=== PATIENT | female | born 1990 | race Caucasian/White ===

== ENCOUNTER 2017-04-25 02:04 | Emergency (ER) | payer BC, OTHER ==
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
[2017-04-25] MEDS ORDERED: NORMAL SALINE 1,000 ML IV PRN (02:19)
[2017-04-25 02:27] LABS: Hematocrit 44.2 % (37.0-47.0); Hemoglobin 15.5 gm/dL (12.5-16.0); Mean Cell Volume 88.8 fl (78-100); Mean Corpuscular Hemoglobin 31.1 pg (27-31); Mean Corpuscular Hgb Conc 35.1 g/dl (32-36); Mean Platelet Volume 9.3 fl (6.0-9.5); Neutrophil # 6.8 K/mm3 (1.3-6.0); Neutrophil % 56.8 % (42-75.0); Platelet Count 398 K/mm3 (150-450); Red Blood Count 4.98 M/mm3 (4.2-5.4); Red Cell Distribution Width 11.9 % (11.5-14.0)
[2017-04-25 02:41] LABS: Albumin * 4.5 gm/dl (3.4-5.0); Anion Gap 17.1 mmol/L (6.8-13.8); BUN/Creatinine Ratio 10.5 (9.0-21.6); Bilirubin, Total 0.3 mg/dL (0.0-1.1); Ca. Corrected For Albumin 7.7 mg/dL (8.4-10.2); Calcium * 8.4 mg/dL (7.9-10.9); Carbon Dioxide 23.9 mmol/L (24-32.6); Total Protein 8.3 gm/dL (6.2-8.2)
[2017-04-25] MEDS ORDERED: MIDAZOLAM HCL/PF 5 MG/ML VIAL ONE (02:49)
[2017-04-25 02:56] LABS: Cocaine Ur Negative (NEGATIVE); Urine Barbiturate Negative (NEGATIVE); Urine Benzodiazepines Negative (NEGATIVE); Urine Opiates Negative (NEGATIVE); Urine PCP Negative (NEGATIVE); Urine THC Negative (NEGATIVE)
[2017-04-25] MEDS ORDERED: POTASSIUM CHLORIDE 20 MEQ TABLET.SA PO ONE (03:08)
[2017-04-25] MEDS ORDERED: MIDAZOLAM HCL/PF 5 MG/ML VIAL IV ONE (03:17)
[2017-04-25] MEDS ORDERED: ceFAZolin SODIUM 1 GM in DEXTROSE 5 % IN WATER 100 ML IV SCH ×2 (03:30)
[2017-04-25] MEDS ORDERED: POTASSIUM CHLORIDE 20 MEQ TABLET.SA ONE (03:34)
[2017-04-25 04:11] VITALS: BP 133/97
== END 2017-04-25 04:35 | disposition short-term general hospital (02) ==
LOC: ER 02:04
PROC: 2W3DX1Z Immobilization of Left Lower Arm using Splint (ICD-10-PCS; principal; 2017-04-25)
DX: S52.92XB Unspecified fracture of left forearm, initial encounter for open fracture type I or II (principal); J93.9 Pneumothorax, unspecified; S27.321A Contusion of lung, unilateral, initial encounter; E87.6 Hypokalemia; F10.129 Alcohol abuse with intoxication, unspecified; V49.9XXA Car occupant (driver) (passenger) injured in unspecified traffic accident, initial encounter; Y92.411 Interstate highway as the place of occurrence of the external cause; Y90.8 Blood alcohol level of 240 mg/100 ml or more
CPT/HCPCS: 29125; 36415; 70450; 71010; 71260; 72125; 73090; 74177; 80053; 80307; 84703; 85025; 86850; 86900; 96365; 96375; 99291; G0390; G0481